=== PATIENT | male | born 1990 | race Caucasian/White ===

== ENCOUNTER 2017-09-22 10:01 | Emergency (ER) | payer OTHER ==
[2017-09-22] MEDS ORDERED: LIDOCAINE 1%/EPINEPHRINE INJ 20 ML VIAL INJ ONE (11:03)
[2017-09-22] MEDS ORDERED: OXYCODONE-ACETAMINOPHEN 5-325 MG TABLET PO ONE (11:03)
--- NOTE | 2017-09-22 11:09 | ER Document Report ---
ED General - General Chief Complaint: Abscess Stated Complaint: POSSIBLE ABSCESS Time Seen by Provider: 09/22/17 10:52 Mode of Arrival: Ambulatory Information source: Patient Notes: Patient is a 27 year old male who presents with left buttock abscess that has been present for the past 4-5 days. Pain worse with BM, sitting, standing. He denies any fever, chills n/v/d, drainage or bleeding from area. He has had similar lesions to his lower legs but has never had them drained, treats them at home. he tried ibuprofen with no improvement. Endorses normal PO intake, normal voids/stools. Otherwise doing well. TRAVEL OUTSIDE OF THE [place] IN LAST 30 DAYS: No - Related Data Allergies/Adverse Reactions: Penicillins Allergy (Verified 09/22/17 10:05) Past Medical History - General Information source: Patient - Social History Smoking Status: Current Every Day Smoker Chew tobacco use (# tins/day): No Frequency of alcohol use: None Drug Abuse: None Patient has suicidal ideation: No Patient has homicidal ideation: No Renal/ Medical History: Denies: Hx Peritoneal Dialysis Review of Systems - Review of Systems Constitutional: See HPI EENT: No symptoms reported Cardiovascular: No symptoms reported Respiratory: No symptoms reported Gastrointestinal: No symptoms reported Genitourinary: No symptoms reported Male Genitourinary: No symptoms reported Musculoskeletal: No symptoms reported Skin: See HPI Hematologic/Lymphatic: No symptoms reported Neurological/Psychological: No symptoms reported Physical Exam - Vital signs Vitals: Temp Pulse Resp BP Pulse Ox 98.5 F 99 18 134/77 H 94 09/22/17 10:06 09/22/17 10:06 09/22/17 10:06 09/22/17 10:06 09/22/17 10:06 - Notes Notes: PHYSICAL EXAM: CONSTITUTIONAL: Alert and oriented, well-appearing and in no acute distress. non -toxic, speaking in full sentences without difficulty. HENT: Normocephalic, atraumatic. Trachea midline. Uvula midline. Moist mucous membranes. EYES: Pupils equal round and reactive to light, EOM intact. Sclera anicteric, conjunctiva are normal. No entrapment. NECK: supple without lymphadenopathy. No midline tenderness or paraspinous muscle spasms. No step-offs or deformities. ROM intact. HEART: Regular rate and rhythm without murmurs. LUNGS: CTAB and equal. No wheezes, rales or rhonchi. GI: Normactive bowel sounds. Nontender, non-distended. No organomegaly. no CVAT. EXTREMITIES: no bony tenderness, erythema, edema, ecchymosis or deformity. Normal range of motion, no pitting edema. No cyanosis. Cap Refill <3 seconds. NEURO: Cranial nerves grossly intact. Normal sensory/motor exams. PSYCH: Normal mood, normal affect. SKIN: Warm and dry. Normal turgor. 2 cm round area of fluctuance to left buttock just lateral to gluteal crease and just above perineum. Course - Re-evaluation Re-evalutation: 09/22/17 11:07 Patient seen and examined. Well hydrated, well appearing, non-toxic. Exam reveals left buttock abscess, not involving testicles, perineum or rectum. Discussed risk/benefit of drainage vs conservative treatment; initially patient wanted to defer I&D but then changed his mind. Wound culture obtained, results pending. - Vital Signs Vital signs: Temp Pulse Resp BP Pulse Ox 98.5 F 99 18 134/77 H 94 09/22/17 10:06 09/22/17 10:06 09/22/17 10:06 09/22/17 10:06 09/22/17 10:06
--- NOTE | 2017-09-22 12:16 | ER Document Report ---
ED General - General Chief Complaint: Abscess Stated Complaint: POSSIBLE ABSCESS Time Seen by Provider: 09/22/17 10:52 Mode of Arrival: Ambulatory Information source: Patient Notes: Patient is a 27 year old male who presents with left buttock abscess that has been present for the past 4-5 days. Pain worse with BM, sitting, standing. He denies any fever, chills n/v/d, drainage or bleeding from area. He has had similar lesions to his lower legs but has never had them drained, treats them at home. he tried ibuprofen with no improvement. Endorses normal PO intake, normal voids/stools. Otherwise doing well. TRAVEL OUTSIDE OF THE [place] IN LAST 30 DAYS: No - Related Data Allergies/Adverse Reactions: Penicillins Allergy (Verified 09/22/17 10:05) Past Medical History - General Information source: Patient - Social History Smoking Status: Current Every Day Smoker Chew tobacco use (# tins/day): No Frequency of alcohol use: None Drug Abuse: None Family History: Reviewed & Not Pertinent Patient has suicidal ideation: No Patient has homicidal ideation: No Renal/ Medical History: Denies: Hx Peritoneal Dialysis Review of Systems - Review of Systems Constitutional: See HPI EENT: No symptoms reported Cardiovascular: No symptoms reported Respiratory: No symptoms reported Gastrointestinal: No symptoms reported Genitourinary: No symptoms reported Male Genitourinary: No symptoms reported Musculoskeletal: No symptoms reported Skin: See HPI Hematologic/Lymphatic: No symptoms reported Neurological/Psychological: No symptoms reported Physical Exam - Vital signs Vitals: Temp Pulse Resp BP Pulse Ox 98.5 F 99 18 134/77 H 94 09/22/17 10:06 09/22/17 10:06 09/22/17 10:06 09/22/17 10:06 09/22/17 10:06 - Notes Notes: CONSTITUTIONAL: Alert and oriented, well-appearing and in no acute distress. non -toxic, speaking in full sentences without difficulty. HENT: Normocephalic, atraumatic. Trachea midline. Uvula midline. Moist mucous membranes. EYES: Pupils equal round and reactive to light, EOM intact. Sclera anicteric, conjunctiva are normal. No entrapment. NECK: supple without lymphadenopathy. No midline tenderness or paraspinous muscle spasms. No step-offs or deformities. ROM intact. HEART: Regular rate and rhythm without murmurs. LUNGS: CTAB and equal. No wheezes, rales or rhonchi. GI: Normactive bowel sounds. Nontender, non-distended. No organomegaly. no CVAT. EXTREMITIES: no bony tenderness, erythema, edema, ecchymosis or deformity. Normal range of motion, no pitting edema. No cyanosis. Cap Refill <3 seconds. NEURO: Cranial nerves grossly intact. Normal sensory/motor exams. PSYCH: Normal mood, normal affect. SKIN: Warm and dry. Normal turgor. 2 cm round area of fluctuance to left buttock just lateral to gluteal crease and just above perineum. Course - Re-evaluation Re-evalutation: 09/22/17 11:12 Patient seen and examined. Well appearing, well hydrated, afebrile and VSS. Appears anxious. Exam reveals 2 cm round area of fluctuance consistent with abscess to left buttock just lateral to gluteal cleft and just distal to rectum. No evidence of perirectal abscess or involvement of scrotum/testicles. Will give PO pain medication prior to I&D. 09/22/17 12:16 I&D procedure - area cleaned and prepped and after injecting approximately 3 cc of lidocaine, patient requested procedure be terminated 2/2 pain/discomfort. Risk/benefit of termination vs proceeding discussed and reassurance given but patient again states "I don't want to keep going." Will treat with abx and pain medications, given strict return precautions if symptoms worsen. At this time, will discharge with return precautions and follow-up recommendations. Verbal discharge instructions given at the bedside and opportunity for questions given. Medication warnings reviewed. Patient is in agreement with this plan and has verbalized understanding of return precautions and the need for primary care follow-up in the next 24-72 hours. - Vital Signs Vital signs: Temp Pulse Resp BP Pulse Ox 98.5 F 99 18 134/77 H 94 09/22/17 10:06 09/22/17 10:06 09/22/17 10:06 09/22/17 10:06 09/22/17 10:06 Procedures - Incision and Drainage Left Buttock Type: Simple Anesthetic type: 1% Lidocaine w/epi mL's of anesthetic: 3 Incision Method: Incision made with needle - procedure terminated prior to incision Notes: 02/25/18 12:11 Area was prepped with betadine and draped. Administered approximately 3 cc of lido w/ epi and patient requested procedure be terminated 2/2 pain/discomfort. Again discussed risk/benefits of proceeding vs termination and again wished for the procedure to stop. No wound culture was able to be obtained. Discharge - Discharge Clinical Impression: Abscess of buttock, left Condition: Stable Disposition: HOME, SELF-CARE Additional Instructions: ABSCESS: You have an abscess (boil). This a pus-forming infection, usually due to staph. Some boils may be left to drain on their own, but most require lancing. From the time the tender lump first appears, it may be three or four days before the abscess is ready to mega. Local heat and rest help at this stage of treatment. An antibiotic may prevent spread of the infection. Once the abscess is opened, packing may be placed into it. This is done so pus is not sealed inside by premature closure of the cavity. The packing will be removed at your follow-up visit or you may be advised to remove it yourself at home. Sometimes this packing must be replaced a few times during healing. The wound will heal with surprisingly little scar. Depending on the size and location of an abscess, healing can take one to four weeks. You may shower and wash the area around the incision site two or three times a day. Antibiotics may be prescribed, but are usually not necessary after an abscess has been drained. If you develop fever, chills, worsening pain, or increasing swelling in the area, call the doctor or return immediately. MRSA CELLULITIS: You have an infection of your skin and underlying soft tissues called cellulitis. This is due to bacteria, which can enter through any break in the skin, or even through an irritated hair follicle. Untreated, cellulitis will usually worsen and may form an abscess which requires draining. Although many bacterial organisms can cause cellulitis and abscess formations, the most likely bacteria is Methicillin-Resistant Staph Aureus, or MRSA for short. Antibiotics are required. Usually, warm packs or warm soaks, and elevation of the infected area are recommended. You should start getting better within 24 to 36 hours. Most infections respond quickly to the right medication. Follow-up care is important, however, to check for abscess (boil) formation, unsuspected foreign body, or resistant infection. If you develop fever, chills, or if the area of infection is becoming rapidly more swollen or painful, call the doctor at once. ORAL NARCOTIC MEDICATION: You have been given a prescription for pain control. This medication is a narcotic. It's best taken with food, as nausea can result if taken on an empty stomach. Don't operate machinery or drive within six hours of taking this medication. Do not combine this medicine with alcohol, or with any medication which can cause sedation (such as cold tablets or sleeping pills) unless you get permission from the physician. Narcotics tend to cause constipation. If possible, drink plenty of fluids and eat a diet high in fiber and fruits. TRIMETHOPRIM-SULFA: You have been given a prescription for trimethoprim-sulfa (TMS, Septra, Bactrim). This is a combination antibiotic of the sulfa class, often used for urinary tract infections, middle ear infections, bronchitis, shigella intestinal infection, and Pneumocystis pneumonia. TMS is usually well-tolerated. Occasional side effects include nausea and decreased appetite. Septra is not recommended for infants less than two months of age. Do not take this medication if you have experienced severe side effects or allergy to sulfa medicine. You should stop this medicine at once and contact your physician if you develop any rash, joint pain, shortness of breath, bruising, or jaundice ( yellow color in the skin), or if you develop any other new or unusual symptoms. FOLLOW-UP CARE: Most simple abscesses will not require a follow up visit. If you had packing placed in the abscess, remove it as instructed by the physician. If you have been referred to a physician for follow-up care, call the physicians office for an appointment as you were instructed or within the next two days. If you experience worsening or a significant change in your symptoms, return to the Emergency Department at any time for re-evaluation. Prescriptions: Hydrocodone/Acetaminophen [[place] 5-325 mg Tablet] 1 tab PO Q6H PRN #10 tablet PRN Reason: Sulfamethoxazole/Trimethoprim [Bactrim Ds Tablet] 1 tab PO BID 7 Days tablet Forms: Elevated Blood Pressure
[2017-09-22 12:38] VITALS: BP 137/82
== END 2017-09-22 12:40 | disposition home or self-care (01) ==
LOC: ER 10:01
PROC: 0H98XZZ Drainage of Buttock Skin, External Approach (ICD-10-PCS; principal; 2017-09-22)
DX: L02.31 Cutaneous abscess of buttock (principal); F17.200 Nicotine dependence, unspecified, uncomplicated; Z88.0 Allergy status to penicillin
CPT/HCPCS: 99283; 10060; A6266; J3490